=== PATIENT | female | born 1990 | race American Indian/Alaskan Native ===

== ENCOUNTER 2020-04-22 12:44 | Outpatient (CLI) | payer OTHER ==
--- NOTE | 2020-04-22 13:44 | Ultrasound Report ---
EXAMINATION: Bilateral Limited Breast Ultrasound, 04/22/2020 INDICATION: Bilateral breast lumpiness superiorly. COMPARISON: None. FINDINGS: Targeted ultrasound evaluation was performed of the area of interest. There is dense fibro glandular tissue bilaterally. I see no evidence of a cystic or solid mass. No posterior shadowing, di stortion or other abnormality is identified. IMPRESSION: Negative study. Further evaluation of any palpable abnormality should be based on clinica l findings. Follow up recommendation: Unless otherwise clinically indicated, recommend patient return to routine screening mammography at age 38. BI-RADS Category 1: Negative. Signer Name: Alexis Matos MD Signed: 04/22/2020 1:40 PM Workstation Name: [id number]
== END 2020-04-22 12:45 | disposition home or self-care (01) ==
LOC: SPVWC 12:44
PROVIDERS: ATTEND Advanced Practice Midwife
DX: R92.2 Inconclusive mammogram (principal); N60.11 Diffuse cystic mastopathy of right breast